=== PATIENT | male | born 1965 | race Caucasian/White ===

== ENCOUNTER 2017-01-12 12:06 | Emergency (ER) | payer SELFPAY ==
--- NOTE | 2017-01-12 12:12 | ER Document Report ---
ED General - General Stated Complaint: HEADACHE Time Seen by Provider: 01/12/17 12:09 Mode of Arrival: Medic Information source: Patient Notes: This is a 51-year-old man with a history of hypertension, active smoking who is brought in by EMS for reported left-sided numbness and tingling, followed by headache. The patient is accompanied by his . In the emergency room, the reports that he started having left-sided weakness acutely at 11 AM. 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 Patient states she had numbness at that time. When EMS arrived the numbness seemed to improve. Patient states that normally he is on amlodipine but he has not taken it for 4 days. He does smoke once pack of cigarettes a day. - HPI Onset: Just prior to arrival Onset/Duration: Sudden Quality of pain: No pain Severity: None Pain Level: Denies Associated symptoms: denies: Chills, Fever, Shortness of breath Exacerbated by: Denies Relieved by: Denies Similar symptoms previously: Yes Recently seen / treated by doctor: No - Related Data Allergies/Adverse Reactions: No Known Allergies Allergy (Verified 01/12/17 12:40) Home Medications: Current Home Medications Amlodipine Besylate [Amlodipine Besylate] 10 mg PO DAILY 01/12/17 [History] Aspirin [Aspirin 325 mg Tablet] 325 mg PO DAILY 01/12/17 [History] Losartan Potassium [Losartan Potassium] 1 tab PO DAILY 01/12/17 [History] Sildenafil Citrate [Viagra] 1 tab PO PRN PRN 01/12/17 [History] Tadalafil [Cialis] 1 tab PO PRN PRN 01/12/17 [History] Past Medical History - General Information source: Patient - Social History Smoking Status: Current Every Day Smoker Cigarette use (# per day): Yes - 1ppd Chew tobacco use (# tins/day): No Smoking Education Provided: No Frequency of alcohol use: None Drug Abuse: None Lives with: Family Family History: None Patient has suicidal ideation: No Patient has homicidal ideation: No Physical Exam - Vital signs Vitals: Pulse Resp BP Pulse Ox 78 16 152/110 H 98 01/12/17 12:15 01/12/17 12:15 01/12/17 12:15 01/12/17 12:15 Notes: Physical exam: GENERAL: 51-year-old man, alert and oriented 3, no acute distress. Not complaining of any significant headache at this time. The patient's blood pressure was 160/110. HEAD: Atraumatic, normocephalic. EYES: Pupils equal round and reactive to light, extraocular movements intact, sclera anicteric, conjunctiva are normal. ENT: TMs normal, nares patent, oropharynx clear without exudates. Moist mucous membranes. NECK: Normal range of motion, supple without lymphadenopathy or JVD. LUNGS: Breath sounds clear to auscultation bilaterally and equal. No wheezes rales or rhonchi. HEART: Regular rate and rhythm without murmurs, rubs or gallops. ABDOMEN: Soft, normoactive bowel sounds. No tenderness to palpation. No guarding, no rebound. No masses appreciated. EXTREMITIES: Normal range of motion, no pitting or edema. No clubbing or cyanosis. NEUROLOGICAL: Cranial nerves II through XII grossly intact. Normal speech, he does have left-sided upper and lower extremity weakness, reflexes appear to be symmetric. Cerebellar function seems to be impaired on the left due to motor function weakness. His sensory is intact, his NIH score is 4. PSYCH: Normal mood, normal affect. SKIN: Warm, Dry, normal turgor, no rashes or lesions noted. Course - Re-evaluation Re-evalutation: Note: The patient had initially reported that he felt that his symptoms were improving. Based upon this and a borderline blood pressure, the initial plan was to hold off on thrombolytics. However, 5 minutes after this determination, the patient stated that his weakness to the left arm into the left leg is getting more significant. On exam, his deficit of weakness does appear to be more dense on the left. His blood pressure came down on its own to 150/95. At that point, it was decided that lytics were to be given. I discussed the risks of TPA with him and his and they show that they understand the risks well. I have given the patient 5 mg of labetalol to prevent it from going up any higher. 01/12/17 13:34 01/12/17 13:41 Encounter timeline; 11 AM: Symptoms started 1215: Arrival to the ER. Blood pressure 155/110. CT shows no bleed. 12:30 NIH score Is 4. Patient reports symptoms seem to be improving. I have discussed the risk of TPA with the patient and the fact that the patient feels that his symptoms are improving, we are holding off on TPA. 12:50 on reassessment, patient reports that his symptoms are getting worse. Exam reveals that his deficit seems to be getting more pronounced. At that point, I made the decision to give TPA. - Vital Signs Vital signs: Temp Pulse Resp BP Pulse Ox 98.3 F 72 14 145/86 H 100 01/12/17 12:16 01/12/17 13:25 01/12/17 13:36 01/12/17 13:36 01/12/17 13:36 - Laboratory Result Diagrams: 01/12/17 12:26 01/12/17 12:26 Laboratory results interpreted by me: 01/12/17 01/12/17 12:26 12:26 Hgb 10.9 L Hct 33.5 L MCV 71 L MCH 23.0 L RDW 19.4 H Chloride 108 H Carbon Dioxide 21 L
--- NOTE | 2017-01-12 12:24 | RADIOLOGY REPORT (SQ) ---
EXAM DESCRIPTION: CT HEAD WITHOUT COMPLETED DATE/TIME: 01/12/2017 12:14 pm REASON FOR STUDY: right numbness COMPARISON: None. TECHNIQUE: Axial images acquired through the brain without intravenous contrast. Images reviewed wi th bone, brain and subdural windows. Images stored on PACS. All CT scanners at this facility use dose modulation, iterative reconstruction, and/or weight based d osing when appropriate to reduce radiation dose to as low as reasonably achievable (ALARA). [facility]: Dose Right [facility]: CareDose [facility]: Dose Right [facility]: Teradose 4D [facility]: [employer] RADIATION DOSE: mGy. LIMITATIONS: None. FINDINGS: VENTRICLES: Normal size and contour. CEREBRUM: No masses. No hemorrhage. No midline shift. Old lacunar infarcts in the internal capsule s bilaterally. No evidence for acute infarction. CEREBELLUM: No masses. No hemorrhage. No alteration of density. No evidence for acute infarction. EXTRAAXIAL SPACES: No fluid collections. No masses. ORBITS AND GLOBE: No intra- or extraconal masses. Normal contour of globe without masses. CALVARIUM: No fracture. PARANASAL SINUSES: No fluid or mucosal thickening. SOFT TISSUES: No mass or hematoma. OTHER: No other significant finding. IMPRESSION: Chronic ischemic changes. COMMENT: Pertinent positive or negative findings of the imaging study reported as a CRITICAL EXAM t ann MARI MD at12:18 on 01/12/2017. Category of Critical Exam: Stroke alert. TECHNICAL DOCUMENTATION: JOB ID: [id number] Quality ID # [id number]: Final reports with documentation of one or more dose reduction techniques (e.g., Au tomated exposure control, adjustment of the mA and/or kV according to patient size, use of iterative reconstruction technique) 2010 [employer]- All Rights Reserved
[2017-01-12] MEDS ORDERED: LABETALOL HCL INJ 20 MG/4 ML DISP.SYRIN IV ONE ×2 (12:36→13:06)
[2017-01-12 12:43] LABS: ABSOLUTE LYMPHOCYTES (AUTO) 1.7 10^3/uL (0.5-4.7); ABSOLUTE MONOCYTES (AUTO) 0.5 10^3/uL (0.1-1.4); ABSOLUTE NEUT (AUTO) 6.9 10^3/uL (1.7-8.2); BASOPHILS % (AUTO) 0.5 % (0-2); EOSINOPHILS % (AUTO) 0.5 % (0-6); HEMATOCRIT 33.5 % (37.9-51.0); HEMOGLOBIN 10.9 g/dL (13.5-17.0); HGB HCT DIFFERENCE -0.8; LYMPHOCYTES % (AUTO) 18.8 % (13-45); MEAN CORPUSCULAR HGB CONC 32.6 g/dL (32.0-36.0); MEAN CORPUSCULAR VOLUME 71 fl (80-97); MONOCYTES % (AUTO) 5.5 % (3-13); RED BLOOD COUNT 4.74 10^6/uL (4.35-5.55); RED CELL DISTRIBUTION WIDTH 19.4 % (11.5-14.0); SEGMENTED NEUTROPHILS % (AUTO) 74.7 % (42-78); WHITE BLOOD COUNT 9.3 10^3/uL (4.0-10.5)
[2017-01-12 12:45] LABS: PARTIAL THROMBOPLASTIN TIME 34.4 SEC (23.5-35.8)
[2017-01-12 12:47] LABS: PROTHROMBIN TIME 12.5 SEC (11.4-15.4)
[2017-01-12] MEDS ORDERED: ASPIRIN 81 MG TABLET, CHEWABLE PO ONE (12:47)
[2017-01-12] MEDS ORDERED: ALTEPLASE INJ 100 MG VIAL ONE (12:53)
[2017-01-12 13:04] LABS: ALANINE AMINOTRANSFERASE 30 U/L (21-72); ALBUMIN 3.9 g/dL (3.5-5.0); ALKALINE PHOSPHATASE 76 U/L (38-126); ANION GAP 10 (5-19); ASPARTATE AMINO TRANSFERASE 28 U/L (17-59); BILIRUBIN,DIRECT 0.3 mg/dL (0.0-0.4); BILIRUBIN,TOTAL 0.4 mg/dL (0.2-1.3); BLOOD UREA NITROGEN 7 mg/dL (7-20); CALCIUM 8.9 mg/dL (8.4-10.2); CARBON DIOXIDE 21 mmol/L (22-30); CHLORIDE 108 mmol/L (98-107); CREATINE KINASE 123 U/L (55-170); CREATININE RESULT 0.72 mg/dL (0.52-1.25); GLUCOSE 99 mg/dL (75-110); POTASSIUM 4.6 mmol/L (3.6-5.0); SODIUM 138.8 mmol/L (137-145); TOTAL PROTEIN 6.7 g/dL (6.3-8.2)
--- NOTE | 2017-01-12 13:05 | RADIOLOGY REPORT (SQ) ---
EXAM DESCRIPTION: CHEST SINGLE VIEW COMPLETED DATE/TIME: 01/12/2017 12:16 pm REASON FOR STUDY: bed 15 stroke alert COMPARISON: None. EXAM PARAMETERS: NUMBER OF VIEWS: One view. TECHNIQUE: Single frontal radiographic view of the chest acquired. RADIATION DOSE: NA LIMITATIONS: None. FINDINGS: LUNGS AND PLEURA: No opacities, masses or pneumothorax. No pleural effusion. MEDIASTINUM AND HILAR STRUCTURES: No masses. Contour normal. HEART AND VASCULAR STRUCTURES: Heart normal in size. Normal vasculature. BONES: No acute findings. HARDWARE: None in the chest. OTHER: No other significant finding. IMPRESSION: NO ACUTE RADIOGRAPHIC FINDING IN THE CHEST. TECHNICAL DOCUMENTATION: JOB ID: [id number]
[2017-01-12 13:15] LABS: CREATINE KINASE MB 1.74 ng/mL (<4.55)
[2017-01-12 13:16] LABS: TROPONIN I < 0.012 ng/mL
[2017-01-12] MEDS ORDERED: ACETAMINOPHEN 325 MG TABLET PO ONE ×2 (13:45→13:47)
[2017-01-12 14:19] VITALS: BP 142/85
--- NOTE | 2017-01-13 03:37 | EKG REPORT ---
SEVERITY:- ABNORMAL ECG - SINUS RHYTHM BORDERLINE INFERIOR Q WAVES NONSPECIFIC T ABNORMALITIES, INFERIOR LEADS : Confirmed by: Darling Kendall MD 13-Jan-2017 03:36:27
== END 2017-01-12 14:20 | disposition short-term general hospital (02) ==
LOC: ER 12:06
DX: I63.9 Cerebral infarction, unspecified (principal); G81.94 Hemiplegia, unspecified affecting left nondominant side; R20.0 Anesthesia of skin; R20.2 Paresthesia of skin; I10 Essential (primary) hypertension; T46.1X6A Underdosing of calcium-channel blockers, initial encounter; Z91.14 Patient's other noncompliance with medication regimen; F17.210 Nicotine dependence, cigarettes, uncomplicated
CPT/HCPCS: 93005; 36415; 82553; 82962; 82550; 85025; 85610; 85730; 80053; 84484; 71010; 70450; 93010; J3490; J2997

== ENCOUNTER 2017-01-21 18:43 | Inpatient (IN) | payer SELFPAY ==
--- NOTE | 2017-01-21 18:53 | ER Document Report ---
ED General - General Mode of Arrival: Ambulatory Information source: Patient - HPI Onset: Other - Refer to HPI notes <TONG MENDOZA - Last Filed: 01/21/17 22:58> <RAUL WILBURN - Last Filed: 01/27/17 12:18> - General Stated Complaint: POSSIBLE STROKE Time Seen by Provider: 01/21/17 18:50 Notes: Patient is a 51 year old male presenting to the ED with stroke like symptoms. Patient was seen in this facility on 01/12/17 for stroke and was given TPA and sent to [facility]. Patient states he was discharged and supposed to be scheduled for outpatient rehabilitation. Patient's spouse states that he started having left-sided weakness while he was sitting in his chair smoking a cigarette. Spouse states the patient kept falling asleep and nodding off when he was sitting in the chair. Patient is on Simvastatin, Pavix, ASA, and Amlodipine. Patient's spouse states he was taking Kratom but spouse states they were told to not take this medication and given Ultram to take instead and spouse states she "hid the medication" from the patient. Patient and spouse state the patient's baseline after his stroke was slight left facial droop, left arm and left leg were 75% strength, and he had some difficulties feeding himself. Patient today only complains of a headache (which he had during his last stroke) and the sudden weakness to his left side. Patient states he has a history of cluster headaches about 7 years ago. Spouse states that on 01/12 there was no bleed on his CT and when he was transferred a physical stroke did appear on the MRI at [facility]. PCP: Dr. Gottlieb ([place]) (TONG MENDOZA) - Related Data Allergies/Adverse Reactions: No Known Allergies Allergy (Verified 01/12/17 12:40) Home Medications: Current Home Medications Alprostadil [Caverject] 20 mcg IC PRN PRN 01/21/17 [History] Aspirin [Aspirin 81 mg Chewable Tablet] 81 mg PO DAILY 01/21/17 [History] Clopidogrel Bisulfate [Clopidogrel] 75 mg PO DAILY 01/21/17 [History] Nicotine [Nicotine Patch] 1 each TD DAILY 01/21/17 [History] Past Medical History - General Information source: Patient, Relative - spouse - Social History Smoking Status: Current Every Day Smoker Cigarette use (# per day): Yes Family History: None - Past Medical History Cardiac Medical History: Reports: Hx Hypercholesterolemia, Hx Hypertension <TONG MENDOZA - Last Filed: 01/21/17 22:58> Review of Systems - Review of Systems Constitutional: No symptoms reported EENT: No symptoms reported Cardiovascular: No symptoms reported Respiratory: No symptoms reported Gastrointestinal: No symptoms reported Genitourinary: No symptoms reported Male Genitourinary: No symptoms reported Musculoskeletal: No symptoms reported Skin: No symptoms reported Hematologic/Lymphatic: No symptoms reported Neurological/Psychological: See HPI, Weakness, Headaches -: Yes All other systems reviewed and negative <TONG MENDOZA - Last Filed: 01/21/17 22:58> Physical Exam - Vital signs Interpretation: Normal <TONG MENDOZA - Last Filed: 01/21/17 22:58> <COSMORAUL - Last Filed: 01/27/17 12:18> - Vital signs Vitals: Temp Pulse Resp BP Pulse Ox 97.8 F 76 16 123/84 98 01/21/17 18:53 01/21/17 18:53 01/21/17 18:53 01/21/17 18:53 01/21/17 18:53 - Notes Notes: GENERAL: Alert, interacts well. Drowsy. Mild distress. HEAD: Normocephalic, atraumatic. EYES: Appear normal. Pupils pinpoint, round, and reactive to light. ENT: Moist mucus membranes, tongue midline. NECK: Full range of motion. Supple. Trachea midline. LUNGS: Clear to auscultation bilaterally, no wheezes, rales, or rhonchi. No respiratory distress. HEART: Regular rate and rhythm. No murmurs, gallops, or rubs. ABDOMEN: Soft, non-tender. Non-distended. Normal bowel sounds. EXTREMITIES: Moves all 4 extremities spontaneously. FROM. Normal strength to the upper and lower extremities bilaterally. No edema. No hyperreflexia. NEUROLOGICAL: Alert and oriented x3. Normal speech. No focal neurological deficits. GSC 15. PSYCH: Normal affect, normal mood. SKIN: Warm, dry, normal turgor. No rashes or lesions noted. (TONG MENDOZA) Course - Laboratory Result Diagrams: 01/21/17 19:06 01/21/17 19:06 - Consults [facility] Time consulted: 20:02 Dr. Graff Time consulted: 20:24 <DELIOCODI DAVISINE - Last Filed: 01/21/17 22:58> - Laboratory Result Diagrams: 01/22/17 06:57 01/21/17 19:06 <RAUL WILBURN - Last Filed: 01/27/17 12:18> - Re-evaluation Re-evalutation: 01/21/17 18:59 Patient presents emergency department with his for concerns of strokelike symptoms. Patient was seen and evaluated on Friday and sent to [facility] after we gave him thrombolytics for CVA. reports that he went to [facility] and she says has made a 75% recovery. She states that his MRI up in [place] was positive. He is an aggressive smoker and and was smoking in the garage this afternoon when she said he became very sleepy his head started to droop he dropped a cigarette and she said he had left arm and left leg weakness similar to his previous episodes. 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 He has equal bilateral lower extremity strength no hyperreflexia. And speech is normal. She reports that he was also off balance and complaining of a headache which she had a headache the previous time as well. And patient has a history of cluster headaches by history. Patient is on Plavix and aspirin he was taking KRATUM for chronic pain but was told to stop that by [facility] 01/21/17 21:04 CT of the head shows changes consistent with evolution following a stroke. I spoke with Dr. SHERYL MOCTEZUMA neurology advisement. He had the record in front of him and stated that he did have a verifiable stroke and was sent home on aspirin Plavix nicotine tramadol and Norvasc. He also mentioned the substance kratom that he had been using and stated that they put him on tramadol for some of withdrawal type symptoms. Patient and reassessed at the bedside passed out on one another had to be aroused at the bedside continuing to deny any substance abuse. neurology at [facility] stated that he does not feel the patient needs transferred currently nor does he feel the patient needs thrombolytics he does however think the patient should be placed under observation and reassessment neurologically and have a repeat CT scan in 24 hours. I spoke with the hospitalist who agreed to admit the patient to the hospital nurse care. (RAUL WILBURN) - Vital Signs Vital signs: Temp Pulse Resp BP Pulse Ox 97.6 F 58 L 16 123/84 98 01/23/17 10:31 01/23/17 10:31 01/23/17 10:31 01/23/17 10:31 01/23/17 10:31 - Laboratory Laboratory results interpreted by me: 01/21/17 01/21/17 01/21/17 19:06 19:06 19:06 WBC 11.6 H Hgb 10.6 L Hct 33.3 L MCV 71 L MCH 22.5 L MCHC 31.9 L RDW 18.8 H Absolute Neutrophils 9.0 H Glucose 137 H ALT 17 L - Consults [facility] Reason for consultation: 01/21/17 20:02 Contacted [facility] to consult about the patient; they will call back. 01/21/17 20:21 Call from [facility], discussed patient with Dr. Lemons who recommends the patient does not need to be transferred. (TONG MENDOZA) Dr. Graff Reason for consultation: 01/21/17 20:[address] Graff for possible admission. Patient will be admitted. (TONG MENDOZA) Critical Care Note - Critical Care Note Total time excluding time spent on procedures (mins): 55 <RAUL WILBURN - Last Filed: 01/27/17 12:18> Discharge <TONG MENDOZA - Last Filed: 01/21/17 22:58> - Discharge Admitting Provider: Hospitalist Unit Admitted: ICU <RAUL WILBURN - Last Filed: 01/27/17 12:18> - Discharge Clinical Impression: acute altered mental status, Recent CVA with thrombolytics Condition: Stable Disposition: ADMITTED INPATIENT Scribe Attestation: 01/21/17 21:06 I personally performed the services described in the documentation reviewed the documentation recorded by my scribe in my presence and it accurately and completely records my words and actions (RAUL WILBURN) Scribe Documentation - Scribe Written by Scribangelique:: Gregg Mendez 01/21/17 20:30 acting as scribe for :: Cosmo <TONG MENDOZA - Last Filed: 01/21/17 22:58> ED NIH Stroke Scale - NIH Stroke Scale *: 1. NIH scale should be completed with appropriate accompanying assessment tools. *: 2. The NIH should reflect what the patient is capable of doing and should not be coached by the clinician. 1a. Level of Consciousness: 0=Alert;keenly responsive -: 1=Drowsy -: 2=Obtunded -: 3=Coma/unresponsive or reflex to noxious stimuli. 1a. Responses: 0 1b. Orientation Questions: a. What month is it? -: b. How old are you? -: 0=Answers both questions correctly. -: 1=Answers one question correctly or patient is intubated or has orotracheal trauma. -: 2=Answers neither question correctly. 1b. Responses: 0 1c. Response to commands: a. Open and close eyes? -: b. Commercial Drafter and release hand? -: Credit is given despite weakness. Demonstration of task is permitted. Substitute command if hands cannot be used. -: 0=Performs both tasks correctly -: 1=Performs one task correctly -: 2=Performs neither task correctly 1c. Responses: 0 2. Gaze: Establish eye contact and instruct patient to "Follow my finger" -: 0=Normal -: 1=Partial gaze palsy. Gaze is abnormal in one or both eyes, but where forced deviation or total gaze paresis is not present. -: 2=Forced deviation or total gaze paresis. 2. Responses: 0 3. Visual Ashraf: Sees fingers in all four quadrants. -: 0=No visual loss. -: 1=Partial hemianopsia. -: 2=Complete hemianopsia. -: 3=Bilateral hemianopsia (including Cortical blindness) 3. Responses: 0 4. Facial Movement: Instruct patient to: -: a. Show me your teeth -: b. Raise your eyebrows -: c. Close your eyes -: d. Smile -: 0=Normal symmetrical movement -: 1=Minor paralysis (flattened nasolabial fold, asymmetry on smiling). -: 2=Partial paralysis (total or near total paralysis of lower face). -: 3=Complete paralysis of upper and lower face 4. Responses: 1 5. Motor functions (left arm): Alternate sides and extend each arm with palms down (90 degrees if sitting or 45 degrees for supine). -: 0=No drift;limb holds for full 10 seconds. -: 1=Drift; limb holds but drifts down before full 10 seconds, but does not hit bed. -: 2=Some effort against gravity; limb cannot get to or maintain position. -: 3=No effort against gravity; limb falls. -: 4=No movement. -: UN=Amputation, joint fusion, explain in comments. 5. Responses (left arm): 0 5. Motor Functions (right arm): Alternate sides and extend each arm with palms down (90 degrees if sitting or 45 degrees for supine). -: 0=No drift;limb holds for full 10 seconds. -: 1=Drift; limb holds but drifts down before full 10 seconds, but does not hit bed. -: 2=Some effort against gravity; limb cannot get to or maintain position. -: 3=No effort against gravity; limb falls. -: 4=No movement. -: UN=Amputation, joint fusion, explain in comments. 5. Responses (right arm): 0 6. Motor Functions (left leg): With patient lying supine, alternate sides and extend each leg (30 degrees always while supine). -: 0=No drift, leg holds position for full 5 seconds -: 1=Drift; leg falls before full 5 seconds but does not hit bed. -: 2=Some effort against gravity, leg falls to bed but some effort against gravity. -: 3=No effort against gravity, leg falls to bed immediately. -: 4=No movement. -: UN=Amputation, joint fusion; explain in comments. 6. Responses (left leg): 0 6. Motor Functions (right leg): With patient lying supine, alternate sides and extend each leg (30 degrees always while supine). -: 0=No drift, leg holds position for full 5 seconds -: 1=Drift; leg falls before full 5 seconds but does not hit bed. -: 2=Some effort against gravity, leg falls to bed but some effort against gravity. -: 3=No effort against gravity, leg falls to bed immediately. -: 4=No movement. -: UN=Amputation, joint fusion; explain in comments. 6. Responses (right leg): 0 7. Limb Ataxia: With eyes open instruct patient to: -: a. "Touch your finger to your nose". -: b. "Touch your heel to your qu[place]" -: 0=Absent -: 1=Present in one limb. -: 2=Present in two limbs. -: UN=Amputation or joint fusion; explain in comments. 7. Responses: 0 8. Sensory: Test sensation using pinprick or noxious stimuli. Test as many body parts as possible. -: 0=Normal;no sensory loss -: 1=Mile to moderate sensory loss (patient feels pin prick but is less sharp on affected side). -: 2=Severe or total sensory loss. 8. Responses: 0 9. Best Language: Instruct patient to: -: a. "Describe what you see in this picture." -: b. "Name the items in this picture." -: c. "Read these sentences." -: 0=No aphasia, normal -: 1=Mild to moderate aphasia. -: 2=Severe aphasia -: 3=Mute, global aphasia, no usable speech or auditory comprehension. 9. Responses: 1 10. Articulation, Dysarthia: Instruct patient to: -: "Read these words" or "Repeat these words" -: 0=Normal -: 1=Mild to moderate; patient may slur some words but can be understood without difficulty. -: 2=Severe; patients speech so slurred as to be unintelligible in the absence of dysphasia. -: UN=Intubated or other physical barrier, explain in comments. 10. Responses: 1 11. Extinction or inattention: 0=No abnormality -: 1= Visual, tactile, auditory, spatial, or personal inattention or extinction to bilateral simulation in one or the sensory modalities. -: 2=Profound gusatbo-inattention or gustabo-inattention to more than one modality; does not recognize own hand. 11. Responses: 0 Total Score: 3 <TONG MENDOZA - Last Filed: 01/21/17 22:58>
--- NOTE | 2017-01-21 19:06 | RADIOLOGY REPORT (SQ) ---
EXAM DESCRIPTION: CT HEAD WITHOUT COMPLETED DATE/TIME: 01/21/2017 6:56 pm REASON FOR STUDY: BED T1 PER DR WILBURN R/O STROKE COMPARISON: 01/12/2017 TECHNIQUE: Axial images acquired through the brain without intravenous contrast. Images reviewed wi th bone, brain and subdural windows. Images stored on PACS. All CT scanners at this facility use dose modulation, iterative reconstruction, and/or weight based d osing when appropriate to reduce radiation dose to as low as reasonably achievable (ALARA). [facility]: Dose Right [facility]: CareDose [facility]: Dose Right [facility]: Teradose 4D [facility]: [employer] RADIATION DOSE: mGy. LIMITATIONS: None. FINDINGS: VENTRICLES: Normal size and contour. CEREBRUM: There are focal areas of decreased attenuation in the deep white frontal lobe and left allie ventricular white matter. There is decreased attenuation adjacent to the posterior horn of the right lateral ventricle. These are consistent with old infarcts. There is no hemorrhage, focal mass or m idline shift. CEREBELLUM: No masses. No hemorrhage. No alteration of density. No evidence for acute infarction. EXTRAAXIAL SPACES: No fluid collections. No masses. ORBITS AND GLOBE: No intra- or extraconal masses. Normal contour of globe without masses. CALVARIUM: No fracture. PARANASAL SINUSES: No fluid or mucosal thickening. SOFT TISSUES: No mass or hematoma. OTHER: No other significant finding. IMPRESSION: Multiple areas of decreased attenuation which have progressed when compared to January 12 . Recommend MRI for further evaluation. TECHNICAL DOCUMENTATION: JOB ID: [id number] Quality ID # [id number]: Final reports with documentation of one or more dose reduction techniques (e.g., Au tomated exposure control, adjustment of the mA and/or kV according to patient size, use of iterative reconstruction technique) 2010 [employer]- All Rights Reserved
--- NOTE | 2017-01-21 19:09 | RADIOLOGY REPORT (SQ) ---
EXAM DESCRIPTION: CHEST SINGLE VIEW COMPLETED DATE/TIME: 01/21/2017 7:02 pm REASON FOR STUDY: ams COMPARISON: 01/12/2017 EXAM PARAMETERS: NUMBER OF VIEWS: One view. TECHNIQUE: Single frontal radiographic view of the chest acquired. RADIATION DOSE: NA LIMITATIONS: None. FINDINGS: LUNGS AND PLEURA: Lung moreno are hyperexpanded but clear. No effusions. MEDIASTINUM AND HILAR STRUCTURES: No masses. Contour normal. HEART AND VASCULAR STRUCTURES: Heart normal in size. Normal vasculature. BONES: No acute findings. HARDWARE: None in the chest. OTHER: No other significant finding. IMPRESSION: Hyperexpansion. No acute findings. TECHNICAL DOCUMENTATION: JOB ID: [id number]
[2017-01-21 19:25] LABS: ABSOLUTE BASOPHILS # (AUTO) 0.1 10^3/uL (0.0-0.2); ABSOLUTE EOSINOPHILS # (AUTO) 0.1 10^3/uL (0.0-0.6); ABSOLUTE LYMPHOCYTES (AUTO) 1.7 10^3/uL (0.5-4.7); ABSOLUTE MONOCYTES (AUTO) 0.8 10^3/uL (0.1-1.4); BASOPHILS % (AUTO) 0.7 % (0-2); EOSINOPHILS % (AUTO) 0.6 % (0-6); HEMATOCRIT 33.3 % (37.9-51.0); HEMOGLOBIN 10.6 g/dL (13.5-17.0); HGB HCT DIFFERENCE -1.5; LYMPHOCYTES % (AUTO) 14.8 % (13-45); MEAN CORPUSCULAR HEMOGLOBIN 22.5 pg (27.0-33.4); MEAN CORPUSCULAR HGB CONC 31.9 g/dL (32.0-36.0); MEAN CORPUSCULAR VOLUME 71 fl (80-97); MONOCYTES % (AUTO) 6.6 % (3-13); RED BLOOD COUNT 4.72 10^6/uL (4.35-5.55); RED CELL DISTRIBUTION WIDTH 18.8 % (11.5-14.0); SEGMENTED NEUTROPHILS % (AUTO) 77.3 % (42-78); WHITE BLOOD COUNT 11.6 10^3/uL (4.0-10.5)
[2017-01-21 19:39] LABS: ANION GAP 11 (5-19); BLOOD UREA NITROGEN 10 mg/dL (7-20); CALCIUM 9.2 mg/dL (8.4-10.2); CARBON DIOXIDE 23 mmol/L (22-30); CHLORIDE 107 mmol/L (98-107); CREATININE RESULT 0.85 mg/dL (0.52-1.25); GLUCOSE 137 mg/dL (75-110); POTASSIUM 4.3 mmol/L (3.6-5.0); SODIUM 140.7 mmol/L (137-145)
[2017-01-21 19:51] LABS: CREATINE KINASE MB 0.58 ng/mL (<4.55)
[2017-01-21 19:52] LABS: TROPONIN I < 0.012 ng/mL
[2017-01-21 22:04] LABS: ADD ON TESTING BLD IN LAB ACKNOWLEDGE
[2017-01-21 22:14] LABS: PROTHROMBIN TIME 12.4 SEC (11.4-15.4)
[2017-01-21 22:15] LABS: PARTIAL THROMBOPLASTIN TIME 31.3 SEC (23.5-35.8)
[2017-01-21 22:20] LABS: MAGNESIUM 1.6 mg/dL (1.6-2.3)
[2017-01-21 22:55] LABS: AMORPHOUS SEDIMENT,URINE TRACE /HPF; APPEARANCE,URINE SLIGHTLY-CLOUDY; BILIRUBIN,URINE NEGATIVE (NEGATIVE); GLUCOSE, URINE NEGATIVE (NEGATIVE); KETONES,URINE NEGATIVE (NEGATIVE); LEUKOCYTE ESTERASE,URINE NEGATIVE (NEGATIVE); NITRITE,URINE NEGATIVE (NEGATIVE); PROTEIN,URINE NEGATIVE (NEGATIVE); URINE SPECIFIC GRAVITY 1.009; UROBILINOGEN,URINE NEGATIVE mg/dL (<2.0)
[2017-01-21 23:07] LABS: URINE BARBITURATES SCREEN NEGATIVE; URINE METHADONE SCREEN NEGATIVE; URINE OPIATES LOW NEGATIVE; URINE PHENCYCLIDINE SCREEN NEGATIVE
[2017-01-21] MEDS ORDERED: NORMAL SALINE 1000 ML 1,000 ML IV PRN (23:07)
[2017-01-21] MEDS ORDERED: ACETAMINOPHEN 325 MG TABLET PO PRN (23:07)
[2017-01-21] MEDS ORDERED: PROMETHAZINE HCL 25 MG TABLET PO PRN (23:16)
[2017-01-21 23:31] LABS: ALANINE AMINOTRANSFERASE 17 U/L (21-72); ALKALINE PHOSPHATASE 67 U/L (38-126); ASPARTATE AMINO TRANSFERASE 20 U/L (17-59); BILIRUBIN,DIRECT 0.3 mg/dL (0.0-0.4); BILIRUBIN,TOTAL 0.4 mg/dL (0.2-1.3); TOTAL PROTEIN 6.7 g/dL (6.3-8.2)
--- NOTE | 2017-01-21 23:47 | PDOC H&P ---
History of Present Illness Admission Date/PCP: 01/21/17 21:23 MICHELLE CASTANON MD Patient complains of: ALTERED MENTAL STATUS History of Present Illness: SHARITA POWELL is a 51 year old male, pack-a-day smoker, status post distant prior stroke without residual aftereffects, status post prior TIA, and status post stroke Friday 9 days ago, transferred from our facility to [facility] after TPA was given here. Discharged this past Friday. Mild residual left hemiparesis. Was standing in his garage smoking a cigarette, when he became very sleepy, dropped the cigarette and said that his left arm and leg weakness had worsened. Was also noted by his girlfriend, who is present at his side, with his approval, to have slight facial droop on the left. Was brought to the emergency room for further evaluation. CT scan results noted. Prior to my being called, the evaluating emergency room physician did speak with the neurologist at [facility], who reviewed this gentlemen's records from there and confirmed that he had indeed had a stroke. It turns out that the patient has been eating Kratum, a plant substance known to the emergency room physician and the neurologist for chronic pain control. Reportedly this medication can make someone quite altered. ER physician observed both patient and his girlfriend to be basically passed out on his emergency room stretcher in the emergency room. However, he did awaken easily and was noted not to have any obvious neurologic deficit other than slight ptosis of his left lid, which girlfriend states is new starting earlier today. Subtle mild headache, which is not unusual for him. Denies chest or abdominal pain, nausea vomiting, fever or chills, diarrhea or dysuria. According to emergency room physician, neurologist at [facility] did not feel transfer there was warranted; simply observation and supportive care with repeat CT scan in 24 hours. Patient has been discussed with emergency room physician who evaluated the patient. Extensive notes by emergency room physician reviewed. Dictation via voice recognition software. Laboratory results are listed in [employer] [facility] and are reviewed. X-ray summary results are listed below, with full report(s) reviewed. . EKG reviewed and compared to prior tracing from the of last month. Social history/personal habits: . Has children. 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 Pack of cigarettes per day. No alcohol use. Substance abuse as noted above. Allergies/adverse reactions are listed in [employer] and are reviewed. Home medications initially autopopulated into [employer] may not accurately reflect patient's true medications, dosages, and/or frequencies. fill technician to reconcile medications. Unfortunately, patient not certain of all medications/dosages/frequencies. REVIEW OF SYSTEMS: Constitutional: No fever or chills. Eyes: Wears glasses. ENT: No swallowing problems or complaints. Partial hearing loss. Pulmonary: No current complaints. Cardiovascular: No current complaints, including chest pain. Gastrointestinal: No current complaints, including nausea or vomiting. Skin: No current complaints, including rashes. Hematologic: Denies easy bruising. Neurologic: See history and present illness. Musculoskeletal: Joint pain from arthritis. Psychiatric: Anxiety. Endocrine: No current complaints, including polyuria. Genitourinary: No current complaints, including dysuria. PHYSICAL EXAMINATION: 72 kg. Height is not recorded on the chart. Blood pressure 114/95. Pulse 79 and regular. 98% saturation on room air. Respirations are 16 and unlabored. Temperature 97.8. He is a thin otherwise well-nourished well-developed though somewhat chronically ill-appearing male who appears a bit older than his stated age. When I initially walked in his emergency room cubicle, he was standing at the bedside, attempting to urinate. Sat down on his emergency room stretcher and then to a supine position without undue difficulty. Girlfriend is present at his side; patient approves. Girlfriend herself appears slightly somnolent at times, and overall under the effect of some substance. Patient intermittently briefly becomes quite sleepy but then awakens quickly when his name is called. Skin is warm and dry. No grossly obvious evidence of rash in areas of skin examined. No subcutaneous nodules palpated. ENT: Hearing grossly normal to normal conversation. Tongue midline on protrusion pink and slightly tacky. Eyes: No scleral icterus. Pupils equal and reactive to light at 4 mm. [place] conjunctivae. Slight ptosis of left eyelid. Neck is supple and nontender to gentle active range of motion and palpation. Midline trachea. No palpable thyroid nodule mass enlargement or tenderness. Lymphatic: No palpable cervical or clavicular nodes. Neck and lymphatic exams limited by patient body habitus. Psychiatric: Reasonable insight into acute and chronic medical issues. Oriented to time location and why here. Lungs: Auscultation reveals clear and equal breath sounds bilaterally. No use of accessory respiratory muscles. Cardiovascular: Heart regular rate and rhythm, without gallop murmur or rub. No carotid or abdominal aortic bruits. No ankle or pedal edema. Faintly palpable dorsalis pedis pulses. Abdomen:soft slightly distended nontender with positive bowel sounds. Unable to adequately evaluate abdomen for masses or organomegaly due to distention. Extremities: Hands and feet are warm and dry. No calf tenderness to compression. No grossly obvious visual evidence of calf swelling. Gentle manipulation of upper and lower extremities fails to reveal any obvious evidence of injury or instability to involved major joints. Neurologic: Cranial Nerves II through XII are grossly intact with the exception again of slight ptosis of the left eyelid. Light touch intact at face , upper and lower extremities. Motor function of major muscle groups upper and lower extremities 5 over 5 and symmetric. Patellar reflexes absent. Absent Babinski. No nystagmus. Past Medical History Cardiac Medical History: Reports: Hypertension Denies: Atrial Fibrillation, Congestive Heart Failure, Coronary Artery Disease, DVT, Myocardial Infarction, Hyperlipidema, Pulmonary Embolism Pulmonary Medical History: Denies: Asthma, Chronic Obstructive Pulmonary Disease (COPD), Sleep Apnea EENT Medical History: Reports: Eyes - Glasses, Ears - Partial hearing loss Denies: Throat Neurological Medical History: Reports: Ischemic CVA Denies: Hemorrhagic CVA, Seizures Endocrine Medical History: Denies: Diabetes Mellitus Type 1, Diabetes Mellitus Type 2, Hyperthyroidism, Hypothyroidism Renal/ Medical History: Reports: None GI Medical History: Reports: Other - History of a "small intestinal" ulcer Denies: Cirrhosis, Gastroesophageal Reflux Disease, Hepatitis, Hiatal Hernia Musculoskeltal Medical History: Reports: Arthritis Skin Medical History: Reports: None Psychiatric Medical History: Reports: General Anxiety Disorder, Substance Abuse , Tobacco Dependency Denies: Alcohol Dependency, Depression Infectious Medical History: Denies: Hepatitis B, Hepatitis C Past Surgical History Past Surgical History: Reports: Carotid Endarterectomy - Right, Orthopedic Surgery - Knee surgery Social History Information Source: Patient, Friend - Girlfriend, Emergency Med Personnel, [facility] Records Smoking Status: Current Every Day Smoker Frequency of Alcohol Use: None Drugs: Other - Kratum - Advance Directive Resuscitation Status: Full Code Surrogate healthcare decision maker:: Girlfriend Daiana Herrera Family History Family History: None Parental Family History Reviewed: Yes - Mother of alcohol complications. Father is alive with COPD. Children Family History Reviewed: Yes - Healthy Sibling(s) Family History Reviewed.: Yes - Sister with multiple sclerosis Medication/Allergy Home Medications: Amlodipine Besylate 10 mg PO DAILY 01/12/17 Alprostadil [Caverject] 20 mcg IC PRN PRN 01/21/17 Aspirin [Aspirin 81 mg Chewable Tablet] 81 mg PO DAILY 01/21/17 Clopidogrel Bisulfate [Clopidogrel] 75 mg PO DAILY 01/21/17 Nicotine [Nicotine Patch] 1 each TD DAILY 01/21/17 Atorvastatin Calcium [Lipitor 40 mg Tablet] 40 mg PO QHS #30 tablet 01/23/17 Tramadol HCl [Ultram 50 mg Tablet] 1 tab PO Q6HP PRN #12 tablet 01/23/17 Allergies/Adverse Reactions: No Known Allergies Allergy (Verified 01/12/17 12:40) Physical Exam Vital Signs: Temp Pulse Resp BP Pulse Ox 97.8 F 60 10 L 131/78 H 94 01/21/17 18:53 01/21/17 22:38 01/21/17 23:01 01/21/17 23:01 01/21/17 23:01 Results Laboratory Results: 01/21/17 22:38 Urine Color YELLOW Urine Appearance SLIGHTLY-CLOUDY Urine pH 5.0 Ur Specific [place] 1.009 Urine Protein NEGATIVE Urine Glucose (UA) NEGATIVE Urine Ketones NEGATIVE Urine Blood NEGATIVE Urine Nitrite NEGATIVE Ur Leukocyte Esterase NEGATIVE Urine WBC (Auto) 2 Urine RBC (Auto) 5 01/21/17 21:52 Troponin I Cancelled Impressions: Head CT 01/21/17 00:00 IMPRESSION: Multiple areas of decreased attenuation which have progressed when compared to January 12. Recommend MRI for further evaluation. Chest X-Ray 01/21/17 18:56 IMPRESSION: Hyperexpansion. No acute findings. Assessment & Plan - Diagnosis (1) Acute encephalopathy Is this a current diagnosis for this admission?: YesPlan: Supportive care at this time. Encephalopathy should clear with time and treatment. (2) Acute focal neurological deficit Is this a current diagnosis for this admission?: YesPlan: Patient will be placed in observation bed admitted under CVA/TIA protocol. Discussed with daytime hospitalist team further imaging procedures, with recommendation by [facility] neurology for repeat CT scan of brain in approximately 24 hours. Will request old records from [facility]. Permissive hypertension. I have strongly urged patient not to get out of bed without calling nursing staff, to avoid a fall with injury. Knee high SCDs for DVT prophylaxis, along with subcutaneous Lovenox. Impression and plans were discussed with patient and girlfriend, both of whom concur Time spent in evaluation and management of patient: 74 minutes (3) Anemia Qualifiers: Anemia type: unspecified type Qualified Code(s): D64.9 - Anemia, unspecified Is this a current diagnosis for this admission?: YesPlan: Follow-up CBC with differential. No need for transfusion at present time. No old labs available for comparison. (4) Left hemiparesis Is this a current diagnosis for this admission?: Yes (5) Substance abuse Is this a current diagnosis for this admission?: YesPlan: At 11:20 PM on the , I spoke with call center at [place] poison control. Awaiting call back from the on-call pattern chain maker supervisor to discuss further the substance kratum. At 11:45 PM on the , patient was discussed by phone with on-call pattern chain maker supervisor, Dr. Hair. She stated the above-noted substance was a plant alkaloid, and at small doses could serve as a stimulant, but in larger doses could act like an opiate. Stated the substance sometimes resulted in elevated liver functions, along with QT prolongation. Occasional seizure with heavy ingestion. Also possible opiate withdrawal symptoms with heavy ingestion. She stated that peak effect was usually 2-3 hours after ingestion, and after 5- 7 hours, the effects should be wearing off nicely. She basically recommended supportive care. She felt if the initial labs were unremarkable, there would be no need to repeat these. (6) hist tpa Is this a current diagnosis for this admission?: Yes (7) Tobacco dependency Is this a current diagnosis for this admission?: Yes (8) History of TIA (transient ischemic attack) Is this a current diagnosis for this admission?: Yes (9) DNR (do not resuscitate) Is this a current diagnosis for this admission?: YesPlan: Early the morning of the , was notified by patient's ICU nurse that patient desired DNR/DNI status. I went to his bedside at 2:50 AM. Patient was asleep, but awoke easily. Alert cooperative. Oriented to time location and why in the hospital. ICU nurse at bedside. Implications of DO NOT RESUSCITATE/DO NOT INTUBATE status discussed with patient. Discussed in layperson's terms. Implications understood. Patient is the health care decision maker. Patient conversation is lucid and appropriate. Patient desires DO NOT RESUSCITATE/DO NOT INTUBATE status. Will honor patient wishes.
[2017-01-22 07:08] LABS: ABSOLUTE BASOPHILS # (AUTO) 0.1 10^3/uL (0.0-0.2); ABSOLUTE EOSINOPHILS # (AUTO) 0.2 10^3/uL (0.0-0.6); ABSOLUTE LYMPHOCYTES (AUTO) 3.2 10^3/uL (0.5-4.7); ABSOLUTE MONOCYTES (AUTO) 0.7 10^3/uL (0.1-1.4); ABSOLUTE NEUT (AUTO) 3.8 10^3/uL (1.7-8.2); EOSINOPHILS % (AUTO) 2.3 % (0-6); HEMATOCRIT 30.3 % (37.9-51.0); HEMOGLOBIN 9.9 g/dL (13.5-17.0); HGB HCT DIFFERENCE -0.6; LYMPHOCYTES % (AUTO) 40.5 % (13-45); MEAN CORPUSCULAR HEMOGLOBIN 22.9 pg (27.0-33.4); MEAN CORPUSCULAR HGB CONC 32.9 g/dL (32.0-36.0); MEAN CORPUSCULAR VOLUME 70 fl (80-97); MONOCYTES % (AUTO) 8.8 % (3-13); RED BLOOD COUNT 4.34 10^6/uL (4.35-5.55); RED CELL DISTRIBUTION WIDTH 18.8 % (11.5-14.0); SEGMENTED NEUTROPHILS % (AUTO) 47.4 % (42-78)
[2017-01-22] MEDS: ENOXAPARIN SODIUM INJ 40 MG/0.4 ML DISP.SYRIN SUBCUT SCH (09:13)
[2017-01-22] MEDS: DOCUSATE SODIUM 100 MG CAPSULE PO SCH ×2 (09:13→17:05)
[2017-01-22] MEDS ORDERED: ASPIRIN 325 MG TABLET, ENT COATED PO SCH (10:00)
--- NOTE | 2017-01-22 10:50 | EKG REPORT ---
SEVERITY:- ABNORMAL ECG - SINUS RHYTHM BORDERLINE INFERIOR Q WAVES NONSPECIFIC T ABNORMALITIES, INFERIOR LEADS : Confirmed by: Ashley Perkins 22-Jan-2017 10:50:13
--- NOTE | 2017-01-22 10:50 | EKG REPORT ---
SEVERITY:- ABNORMAL ECG - SINUS RHYTHM PROBABLE INFERIOR INFARCT, AGE INDETERMINATE : Confirmed by: Ashley Perkins 22-Jan-2017 10:50:19
[2017-01-22] MEDS ORDERED: NICOTINE 7 MG/24 HR PATCH.TD24 TD PRN (10:58)
[2017-01-22] MEDS ORDERED: ALPROSTADIL 20 MCG IC PRN (10:58)
[2017-01-22] MEDS ORDERED: TRAMADOL HCL 50 MG TABLET PO PRN (10:58)
[2017-01-22] MEDS: TRAMADOL HCL 50 MG TABLET PO PRN ×3 (11:51→23:50)
--- NOTE | 2017-01-22 13:42 | PROGRESS NOTE E ---
Progress Note NAME: SHARITA POWELL : 1965 AGE: 51Y DATE: 01/22/2017 ROOM: 318 SUBJECTIVE: The patient is currently lying in bed. He states he feels much better than when he came in. He has almost had complete symptom resolution. The patient does admit to a full body pain that he attributes to arthritis. The patient states that he had been discharged on just a few Ultram from [facility] and would like to have this continued. Currently awaiting medical records from [facility]. The patient has been afebrile, his blood pressure has been in a good range, and the patient does not voice any other concerns at this time. REVIEW OF SYSTEMS: The rest of the review of systems is negative. MEDICATIONS: Medications have been reviewed. OBJECTIVE: GENERAL: The patient is a 51-year-old male who is awake, alert, and oriented to person, place, time, and situation. He is verbal, conversational, ambulatory, does not appear to be in any acute distress. VITAL SIGNS: As follows: Temperature is 97.9, pulse 70, respirations 19, blood pressure is 122/77, oxygen saturation is 97% on room air. SKIN: Warm and dry. No rash, not diaphoretic. HEENT: Pupils equal, round, and reactive to light and accommodation. Conjunctivae pink. There is no JVP. CARDIOVASCULAR: Heart is regular. There is no murmur or rub. CHEST: Clear, symmetrical, unlabored. ABDOMEN: Soft, nontender, nondistended. BACK: No CVA tenderness or sacral edema. EXTREMITIES: No clubbing, cyanosis, edema. PSYCHIATRIC: Appropriate affect. Pleasant mood. DIAGNOSTICS: Lab values are as follows. Hematology obtained on 01/22/2017: WBCs are 8.0, hemoglobin is 9.9, hematocrit is 38.3, platelet count is 239,000. Chemistry obtained on 01/21/2017: Bilirubin is 0.4, AST 20, ALT 17, alk phos 67, total protein 6.7, albumin 4. Troponin is 0.012. IMPRESSION AND PLAN: 1. CEREBROVASCULAR DISEASE. The patient has had complete resolution of previous weakness. The patient is about a week out from a previous CVA in which he was t-PA'd at [facility], currently awaiting medical records for this. In the meantime, will continue the patient's home medications and follow. The patient is to have a repeat CT at the 24-hour silvano as per recommendations of Neurology. This has been ordered and timed. 2. LEFT HEMIPARESIS; THIS IS CHRONIC. 3. KRATOM USE. The case was discussed with Toxicology. According to the patient he has not had this since discharge from [facility], that he had been taking Ultram for his pain instead. Will encourage this. 4. TOBACCO DEPENDENCY. Spent 3 minutes discussing smoking cessation education. The patient declines any pharmacological intervention at this time. DISPOSITION: THE PATIENT IS A DO NOT RESUSCITATE/DO NOT INTUBATE. Pending the patient's symptomatology and diagnostic findings, will re-evaluate in the a.m. Time spent on this followup, including assessment/plan, physical examination, patient education, and review of previous records, is 35 minutes. DICTATING PHYSICIAN: NHAN ABDUL NP [id number] PHY#: [id number] ID: [id number] JOB#: [id number] ACCT: [id number] cc: >
--- NOTE | 2017-01-22 19:41 | RADIOLOGY REPORT (SQ) ---
EXAM DESCRIPTION: CT HEAD WITHOUT COMPLETED DATE/TIME: 01/22/2017 7:04 pm REASON FOR STUDY: 24hr follow-up per Neurology COMPARISON: 01/21/2017 TECHNIQUE: Axial images acquired through the brain without intravenous contrast. Images reviewed wi th bone, brain and subdural windows. Images stored on PACS. All CT scanners at this facility use dose modulation, iterative reconstruction, and/or weight based d osing when appropriate to reduce radiation dose to as low as reasonably achievable (ALARA). [facility]: Dose Right [facility]: CareDose [facility]: Dose Right [facility]: Teradose 4D [facility]: Smart Immunovaccine RADIATION DOSE: Up-to-date CT equipment and radiation dose reduction techniques were employed. CTDIv ol: 64.6 mGy. DLP: 1163 mGy-cm. mGy. LIMITATIONS: None. FINDINGS: VENTRICLES: Normal size and contour. CEREBRUM: The focal areas of decreased attenuation in the left periventricular white matter, right pe riventricular white matter an adjacent to the posterior horn of the right lateral ventricle are stabl e in appearance. No hemorrhage. No focal mass or midline shift. CEREBELLUM: No masses. No hemorrhage. No alteration of density. No evidence for acute infarction. EXTRAAXIAL SPACES: No fluid collections. No masses. ORBITS AND GLOBE: No intra- or extraconal masses. Normal contour of globe without masses. CALVARIUM: No fracture. PARANASAL SINUSES: No fluid or mucosal thickening. SOFT TISSUES: No mass or hematoma. OTHER: No other significant finding. IMPRESSION: Stable unenhanced CT of the brain with multiple areas of decreased attenuation most cons istent with old infarcts. There has been no change management analyst the past 24 hours. TECHNICAL DOCUMENTATION: JOB ID: [id number] Quality ID # [id number]: Final reports with documentation of one or more dose reduction techniques (e.g., Au tomated exposure control, adjustment of the mA and/or kV according to patient size, use of iterative reconstruction technique) 2010 [employer]- All Rights Reserved
[2017-01-22] MEDS ORDERED: ATORVASTATIN CALCIUM 40 MG TABLET PO SCH (22:00)
[2017-01-23] MEDS: TRAMADOL HCL 50 MG TABLET PO PRN (06:05)
[2017-01-23] MEDS ORDERED: PROMETHAZINE HCL 25 MG TABLET PO PRN (07:45)
[2017-01-23] MEDS: DOCUSATE SODIUM 100 MG CAPSULE PO SCH (09:30)
[2017-01-23] MEDS: ENOXAPARIN SODIUM INJ 40 MG/0.4 ML DISP.SYRIN SUBCUT SCH (09:30)
[2017-01-23] MEDS ORDERED: ASPIRIN 81 MG TABLET, CHEWABLE PO SCH (10:00)
[2017-01-23] MEDS ORDERED: AMLODIPINE BESYLATE 10 MG TABLET PO SCH (10:00)
[2017-01-23] MEDS ORDERED: CLOPIDOGREL BISULFATE 75 MG TABLET PO SCH (10:00)
[2017-01-23 10:33] VITALS: BP 123/84
--- NOTE | 2017-01-23 12:17 | DISCHARGE SUMMARY E ---
Discharge Summary NAME: SHARITA POWELL : 1965 AGE: 51Y ADMITTED: 01/22/2017 DISCHARGED: 01/23/2017 CODE STATUS: DO NOT RESUSCITATE/DO NOT INTUBATE with portable DNR. PRIMARY CARE PROVIDER: Steven Gottlieb DISCHARGE DIAGNOSES: 1. Transient ischemic attack. 2. Cerebrovascular disease. 3. Carotid stenosis. 4. Left hemiparesis due to previous CVA. 5. Chronic pain. 6. Tobacco dependency. DISCHARGE MEDICATIONS: 1. Ultram 50 mg p.o. q.6 hours p.r.n., 12 tablets with 0 refills. 2. Lipitor 40 mg p.o. at hour of sleep, 30 tablets with 0 refills. 3. Nicotine patch transdermally daily. 4. Plavix 75 mg p.o. daily. 5. Aspirin 81 mg p.o. daily. 6. Amlodipine 10 mg p.o. daily. 7. Caverject 20 mcg as needed. DIET: Heart healthy. ACTIVITY: As tolerated. DIAGNOSTICS: Lab values are as follows: Hematology obtained on 01/22/2017: WBCs are 8.0, hemoglobin is 9.9, hematocrit is 30.3, platelet count is 239,000. Chemistry obtained on 01/21/2017: PT is 12.4. INR is 0.86. Chemistry obtained on 01/21/2017: Sodium is 140, potassium is 4.3, chloride is 107, carbon dioxide 23, BUN 10, creatinine is 0.85, glucose 137, calcium is 9.2, magnesium is 1.6, bilirubin is 0.4, AST 20, ALT 17, alk phos 67, CK-MB is 0.58. Troponin is 0.012. Total protein 6.7, albumin 4.0, TSH is 1.22. Urinalysis obtained on 01/21/2017: Color yellow, appearance slightly cloudy, pH 5.0, specific gravity 1.009, protein negative, glucose negative, ketones negative, occult blood negative, nitrate negative, bilirubin negative, urobilinogen negative, leukocyte esterase negative, WBC 2, RBC 5, casts 1, mucous rare, ascorbic acid negative. Toxicology obtained on 01/21/[address] Head [address] obtained on 01/21/2017 reveals multiple areas of decreased attenuation which have progressed in comparison to January 12. Chest x-ray obtained on 01/21/2017 reveals hyperexpansion. No acute findings. Chest CT obtained on 01/22/[address] of the brain and multiple areas of decreased attenuation most consistent with old infarct. EKG obtained on 01/21/2017 reveals sinus rhythm. EKG obtained on 01/22/2017 reveals sinus rhythm. PHYSICAL EXAMINATION: GENERAL: On examination, the patient is a well-developed, well-nourished, 51-year-old male who is awake, alert, and oriented to person, place, time, and situation. He is verbal, conversational, and does not appear to be in any acute distress. VITAL SIGNS: Temperature 97.6, pulse 58, respirations 16, blood pressure 123/84, oxygen saturation is 98% on room air. SKIN: Warm and dry. No rash. Not diaphoretic. HEENT: Pupils equal, round, reactive to light and accommodation. Conjunctivae are pink. No JVP. CARDIOVASCULAR: Heart is regular with no murmur or rub. CHEST: Clear, symmetrical, unlabored. ABDOMEN: Soft, nontender, nondistended. BACK: No CVA tenderness or sacral edema. EXTREMITIES: No clubbing, cyanosis, or edema. PSYCHIATRIC: Appropriate affect. Pleasant mood. HISTORY OF PRESENT ILLNESS: The patient is a 51-year-old male with a past medical history of tobacco dependency and cerebrovascular disease. The patient presented to the emergency department with a chief complaint of altered mental status. The patient is status post distant prior stroke without residual effects; however, he is status post prior TPA on Friday, 9 days prior to presentation. The patient was transferred out of our facility to [facility] after TPA was given. The patient was discharged last Friday with mild residual left hemiparesis. Prior to presenting the patient was standing in his garage smoking a cigarette, the patient being a pack a day smoker, when he felt sleepy, dropped his cigarette, and said that his left arm and left leg had worsened. The patient, also noted by his girlfriend who was present at the bedside, appeared to have a slight facial droop on the left. The patient was then brought into the emergency department for evaluation. CT scan results were noted and the emergency room provider did speak to the neurologist at [facility] who reviewed the patient's records from there and confirmed that he indeed had a stroke from his previous admission and the only recommendations were made to provide observation and supportive care, and repeat CT scan in 24 hours. The patient was referred to the hospitalist for admission and management. HOSPITAL COURSE: The patient was observed in continuous telemetry unit. 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 The patient's repeat CT scan only showed old areas of involvement and nothing evolving. The patient, who does have significant stenosis, is completely occluded according to the girlfriend and is recommended to have an endarterectomy on that side whereas he has had a prior on the other. The patient is encouraged to please comply with stain therapy as well as aspirin therapy. The patient does have chronic pain for which he has taken Kratom in the past and was transitioned to Ultram which has been beneficial. Have provided the patient prescription for this until he can follow up with his primary care provider. Time spent on this discharge including assessment, plan, physical examination, patient education, and family meeting is 25 minutes. DICTATING PHYSICIAN: NHAN ABDUL NP [id number] PHY#: [id number] ID: [id number] JOB#: [id number] ACCT: [id number] cc:ARIANNA FULLER M.D., MICHAEL NP >
--- NOTE | 2017-01-23 13:21 | EKG REPORT ---
SEVERITY:- ABNORMAL ECG - SINUS RHYTHM NONSPECIFIC INTRAVENTRICULAR CONDUCTION DELAY BORDERLINE INFERIOR Q WAVES : Confirmed by: Ashley Perkins 23-Jan-2017 13:21:10
== END 2017-01-23 11:14 | disposition home or self-care (01) | DRG 70 ==
LOC: ER 18:43 → UNDOADMIN 21:23 → EH 21:23 → INTOOBSV 23:07 → EH 23:07 → ICU 01-22 00:05 → EH 01-22 00:05 → OBSVTOIN 01-22 04:30 → 3W 01-22 06:01
PROVIDERS: ADMIT Family Medicine; ATTEND Family Medicine
DX: I67.9 Cerebrovascular disease, unspecified (principal); G93.49 Other encephalopathy; I69.354 Hemiplegia and hemiparesis following cerebral infarction affecting left non-dominant side; Z66 Do not resuscitate; R29.818 Other symptoms and signs involving the nervous system; G89.29 Other chronic pain; I10 Essential (primary) hypertension; D64.9 Anemia, unspecified; E78.5 Hyperlipidemia, unspecified; R29.810 Facial weakness; F17.210 Nicotine dependence, cigarettes, uncomplicated; Z79.01 Long term (current) use of anticoagulants
CPT/HCPCS: 36415; 70450; 71010; 80048; 80076; 80307; 81001; 82553; 83735; 84443; 84484; 85025; 85610; 85730; 93005; 93010; 99285; G0378; J1650; J3490; J7030

== ENCOUNTER 2017-03-18 03:43 | Emergency (ER) | payer SELFPAY ==
--- NOTE | 2017-03-18 04:03 | ER Document Report ---
ED Neuro Symptoms/Deficit <DANA TURK - Last Filed: 03/18/17 05:30> - General Mode of Arrival: Ambulatory Information source: Patient TRAVEL OUTSIDE OF THE [place] IN LAST 30 DAYS: No <WAYNE VELA - Last Filed: 03/18/17 06:50> - General Chief Complaint: Numbness Stated Complaint: NUMBNESS Time Seen by Provider: 03/18/17 04:03 Notes: 52 yo htn, hyperlipedemic, smoker, alcoholic who has been drinking 1 quart of whiskey daily for a week due to breaking up with girlfriend, went to sleep at 2300, woke up at 3 am with numbness to left arm and leg, got scared, jumped into car and drove here. Numbness went away on way here. Does have headache - bandlike. PCP: dr. saldaña in [place]. 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 Stroke in 2008 in [place], left carotid endartarectomy done at that time. 01-12-17 at [facility] at left sided weakness that got worse while in ER, TPA given and sent to [facility], and right 50% blocked so endartarectomy not done. At this time 5+ strength bilateral arms and legs, no facial weakness. 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 Lives with: Alone Family History: None Patient has suicidal ideation: No Patient has homicidal ideation: No - Past Medical History Cardiac Medical History: Reports: Hx Hypertension Neurological Medical History: Reports: Hx Cerebrovascular Accident - 2008, 2016 Renal/ Medical History: Denies: Hx Peritoneal Dialysis Musculoskeltal Medical History: Reports Hx Arthritis Past Surgical History: Reports: Hx Carotid Endarterectomy - Right, Hx Orthopedic Surgery - Knee surgery <WAYNE VELA - Last Filed: 03/18/17 06:50> Review of Systems - Review of Systems Constitutional: No symptoms reported EENT: No symptoms reported Cardiovascular: No symptoms reported Respiratory: No symptoms reported Gastrointestinal: No symptoms reported Genitourinary: No symptoms reported Male Genitourinary: No symptoms reported Musculoskeletal: No symptoms reported Skin: No symptoms reported Hematologic/Lymphatic: No symptoms reported Neurological/Psychological: See HPI <WAYNE VELA - Last Filed: 03/18/17 06:50> Physical Exam - Vital signs Interpretation: Normal - General General appearance: Appears well, Alert - HEENT Head: Normocephalic, Atraumatic Eyes: Normal Conjunctiva: Normal Extraocular movements intact: Yes Pupils: PERRL Mucous membranes: Normal Pharynx: Normal Neck: Supple. No: Lymphadenopathy - Respiratory Respiratory status: No respiratory distress Chest status: Nontender Breath sounds: Normal Chest palpation: Normal - Cardiovascular Rhythm: Regular Heart sounds: Normal auscultation Murmur: No - Abdominal Inspection: Normal Distension: No distension Bowel sounds: Normal Tenderness: Nontender Organomegaly: No organomegaly - Back Back: Normal, Nontender - Extremities General upper extremity: Normal inspection, Nontender, Normal color, Normal ROM , Normal temperature General lower extremity: Normal inspection, Nontender, Normal color, Normal ROM , Normal temperature, Normal weight bearing. No: Milton's sign - Neurological Neuro grossly intact: Yes Cognition: Normal Orientation: AAOx4 Jillian Coma Scale Eye Opening: Spontaneous Clyde Coma Scale Verbal: Oriented Clyde Coma Scale Motor: Obeys Commands Clyde Coma Scale Total: 15 Speech: Normal Motor strength normal: LUE, RUE, LLE, RLE Additional motor exam normals: Equal correctional officer captain, Other - 5+ strength to rickey legs and arms. No: Involuntary movements, Hemiplegia Sensory: Normal - Psychological Associated symptoms: Normal affect, Normal mood - Skin Skin Temperature: Warm Skin Moisture: Dry Skin Color: Normal Skin irregularity: negative: Rash <WAYNE VELA - Last Filed: 03/18/17 06:50> - Vital signs Vitals: Temp Pulse Resp BP Pulse Ox 97.5 F 76 18 142/92 H 100 03/18/17 03:53 03/18/17 03:53 03/18/17 03:53 03/18/17 03:53 03/18/17 03:53 Course - Laboratory Result Diagrams: 03/18/17 04:35 03/18/17 04:35 <DANA TURK - Last Filed: 03/18/17 05:30> - Laboratory Result Diagrams: 03/18/17 04:35 03/18/17 04:35 <WAYNE VELA - Last Filed: 03/18/17 06:50> - Re-evaluation Re-evalutation: 03/18/17 05:30 I did go and evaluate the patient. I initially spoke with the radiologist reviewed all the patient's infarcts to make sure that the infarct seen on CT scan today were not new in comparison to the previous old CT scan. The radiologist, Dr. Mallory, says that all the infarcts or old maturing infarcts. There are no new infarcts that he can see. He did mention that the patient does have an odd pattern where he does have some smaller wedge-shaped infarcts are periventricular. He says that these likely can sometimes represent demyelinating disease. Initially was concerned with this and want to make sure the patient had an MRI. I did go and speak with the patient. The patient said he actually had an MRI in December when he was [facility] to [facility]. At that time he said there is no evidence of multiple sclerosis on his MRI and he was told that he just had infarcts at that time. He did see a neurologist in [place] at that time. He has not followed back up with the neurologist. He says he just follows closely with his primary care doctor in [place]. I informed him that this time we have 2 options. I told him I suspect that he most likely had a TIA. He has had multiple TIAs in the past. Informed him that continuously drinking alcohol will not help his symptoms and continue use of alcohol this from a high risk for strokes. He is understanding of this. He said he would try to quit. He does agree to taking gabapentin to try to help prevent withdrawal symptoms and to try to quit. I will prescribe him some gabapentin. I did to stand him in walking. He does walk well without staggering. He does have good equal correctional officer captain strength. All his numbness and that he had earlier is now gone. He looks well. He has no focal neurologic deficits on exam. Cranial nerves II through XII are intact. Patient is on max therapy for preventing TIAs already. He is on Plavix and aspirin. I did offer him to stay in the hospital versus following up closely outpatient with his doctor for reevaluation and referral back to his neurologist. Patient says he does not want to stay in the hospital and prefers to follow-up out patiently. I informed him that I am okay with him falling out patiently as long as he is willing to return to the ER immediately if he has any recurrence of any strokelike symptoms. Patient is agreeable to this and will be discharged home. I encouraged him to talk to his doctor neurologist about further workup for MS even though his primary MRI was negative for this as his infarct pattern is atypical. Patient agrees with this. Dictation of this chart was performed using voice recognition software; therefore, there may be some unintended grammatical errors. (DANA TURK) 03/18/17 05:[address] turk for the CT who is calling the radiologist that read the CT to compare to the 01-21- and 01-22 ct's. the radiologist read them as "Maturing" strokes. EKG NSR. Radiologist said no new infarcts, maturing since 01-22-17. Perivetricular-white matter disease but [facility] MS. 03/18/17 05:[address] caldera for admission, MRI, neurology consult per dr. turk suggestion. Dr caldera is not answering the phone. 03/18/17 05:16 dr hansen went into the room and spoke with the pt. Pt on asa and plavix. Pt wants to go home versus admission that was offered. dr turk aware of the troponin level. 03/18/17 06:49 pt ambulated in hallway, stable gait, pt feels "100%" better, per dr. turk pt is OK to go home. (WAYNE VELA) - Vital Signs Vital signs: Temp Pulse Resp BP Pulse Ox 97.5 F 75 15 131/75 H 99 03/18/17 03:53 03/18/17 06:00 03/18/17 06:01 03/18/17 06:00 03/18/17 06:01 - Laboratory Laboratory results interpreted by me: 03/18/17 03/18/17 04:35 04:35 Hgb 11.8 L Hct 35.2 L MCV 70 L MCH 23.4 L RDW 19.6 H Lymphocytes % 46.9 H Sodium 147.8 H Chloride 111 H Discharge <DANA TURK - Last Filed: 03/18/17 05:30> <WAYNE VELA - Last Filed: 03/18/17 06:50> - Discharge Clinical Impression: TIA (transient ischemic attack) Qualifiers: Transient cerebral ischemia type: unspecified Qualified Code(s): G45.9 - Transient cerebral ischemic attack, unspecified Condition: Good Disposition: HOME, SELF-CARE Additional Instructions: Please follow up closely with your doctor for reevaluation this week. Please inform him that you had the episode tonight suggestive of a TIA. Also please inform him that the pattern on your CT scan is sometimes suggestive of a demyelinating disease such as MS even though your MRI in December did not suggest this. Please have your doctor refer you to follow back up with a neurologist for reevaluation and further workup. Please try to cut back on your alcohol intake. Use the gabapentin to help reduce the symptoms of withdrawal. Please take it as prescribed. Please try not to drink large amounts of alcohol when taking the gabapentin. Please return to the ER immediately if you are having intractable withdrawal symptoms despite the gabapentin, if you have any recurrence of any strokelike symptoms such as weakness or numbness or difficulty talking, or if you have any further concerns. Prescriptions: Gabapentin 400 mg PO ASDIR PRN #22 capsule PRN Reason:
--- NOTE | 2017-03-18 04:42 | RADIOLOGY REPORT (SQ) ---
EXAM: NONCONTRAST BRAIN CT EXAMINATION. CLINICAL INDICATION: Left-sided numbness. COMPARISON: Brain CT of January 22, 2017. TECHNIQUE: Using low dose helical CT technique, thin section axial images were performed through the brain without the administration of intravenous or subarachnoid contrast material. FINDINGS: Maturing hypodensities in the upper right frontal lobe within anterior right middle cerebral artery territory suggests maturing infarction. Unchanged wedge-shaped upper left white matter hypodensity perpendicular to the left lateral ventricle. Small right periventricular hypodensity. No diffuse brain swelling or brain herniation. No hydrocephalus. No subdural or epidural hematomas. No large subacute brain infarction. No parenchymal brain hemorrhage or evidence of intracranial mass lesion. Caudate heads, lentiform nuclei, thalami and internal capsules are normal. Bones of the skull and skull base are normal. The middle ears and mastoid air cells are clear. The paranasal sinuses are clear. Moderate atherosclerotic calcification of the cavernous internal carotid arteries. IMPRESSION: 1. Suspect maturing right frontal lobe infarction as described above. No associated intracranial hemorrhage. 2. Periventricular white matter lesions as described above raise suspicion for demyelinating disease, specifically multiple sclerosis.
[2017-03-18 04:44] LABS: ABSOLUTE BASOPHILS # (AUTO) 0.1 10^3/uL (0.0-0.2); ABSOLUTE EOSINOPHILS # (AUTO) 0.1 10^3/uL (0.0-0.6); ABSOLUTE LYMPHOCYTES (AUTO) 3.2 10^3/uL (0.5-4.7); ABSOLUTE MONOCYTES (AUTO) 0.5 10^3/uL (0.1-1.4); EOSINOPHILS % (AUTO) 1.8 % (0-6); HEMATOCRIT 35.2 % (37.9-51.0); HEMOGLOBIN 11.8 g/dL (13.5-17.0); HGB HCT DIFFERENCE 0.2; LYMPHOCYTES % (AUTO) 46.9 % (13-45); MEAN CORPUSCULAR HEMOGLOBIN 23.4 pg (27.0-33.4); MEAN CORPUSCULAR HGB CONC 33.5 g/dL (32.0-36.0); MEAN CORPUSCULAR VOLUME 70 fl (80-97); MONOCYTES % (AUTO) 6.7 % (3-13); RED BLOOD COUNT 5.04 10^6/uL (4.35-5.55); RED CELL DISTRIBUTION WIDTH 19.6 % (11.5-14.0); SEGMENTED NEUTROPHILS % (AUTO) 43.6 % (42-78); WHITE BLOOD COUNT 6.9 10^3/uL (4.0-10.5)
--- NOTE | 2017-03-18 04:44 | RADIOLOGY REPORT (SQ) ---
EXAM DESCRIPTION: CHEST SINGLE VIEW CLINICAL HISTORY: 52 years, Male, numbness left side COMPARISON: Chest radiographs of January 21, 2017. NUMBER OF VIEWS: 1 TECHNIQUE: Interval radiographic technique. LIMITATIONS: None. FINDINGS: Unchanged findings of probable bilateral emphysematous damage in both hyperexpanded lungs. Cardiac size is normal. No superimposed pneumonia, pulmonary edema, pneumothorax or pneumomediastinum. Bones appear normal on this single view. IMPRESSION: Unchanged findings of COPD and emphysematous damage. No superimposed acute cardiopulmonary disease. 2011 [employer]- All Rights Reserved
[2017-03-18 04:52] LABS: PARTIAL THROMBOPLASTIN TIME 29.8 SEC (23.5-35.8); PROTHROMBIN TIME 12.8 SEC (11.4-15.4)
[2017-03-18 04:57] LABS: ALANINE AMINOTRANSFERASE 35 U/L (21-72); ALBUMIN 4.3 g/dL (3.5-5.0); ALKALINE PHOSPHATASE 81 U/L (38-126); ANION GAP 13 (5-19); ASPARTATE AMINO TRANSFERASE 36 U/L (17-59); BILIRUBIN,DIRECT 0.3 mg/dL (0.0-0.4); BILIRUBIN,TOTAL 0.4 mg/dL (0.2-1.3); BLOOD UREA NITROGEN 9 mg/dL (7-20); CARBON DIOXIDE 24 mmol/L (22-30); CHLORIDE 111 mmol/L (98-107); CREATINE KINASE 93 U/L (55-170); CREATININE RESULT 0.65 mg/dL (0.52-1.25); GLUCOSE 83 mg/dL (75-110); POTASSIUM 3.9 mmol/L (3.6-5.0); SODIUM 147.8 mmol/L (137-145); TOTAL PROTEIN 6.8 g/dL (6.3-8.2)
[2017-03-18 05:08] LABS: CREATINE KINASE MB 0.89 ng/mL (<4.55); TROPONIN I 0.028 ng/mL
[2017-03-18 06:06] LABS: APPEARANCE,URINE CLEAR; BILIRUBIN,URINE NEGATIVE (NEGATIVE); GLUCOSE, URINE NEGATIVE (NEGATIVE); KETONES,URINE NEGATIVE (NEGATIVE); LEUKOCYTE ESTERASE,URINE NEGATIVE (NEGATIVE); NITRITE,URINE NEGATIVE (NEGATIVE); PROTEIN,URINE NEGATIVE (NEGATIVE); URINE SPECIFIC GRAVITY 1.008; UROBILINOGEN,URINE NEGATIVE mg/dL (<2.0)
[2017-03-18 06:21] LABS: URINE BARBITURATES SCREEN NEGATIVE; URINE METHADONE SCREEN NEGATIVE; URINE OPIATES LOW NEGATIVE; URINE PHENCYCLIDINE SCREEN NEGATIVE
[2017-03-18 06:54] VITALS: BP 132/78
--- NOTE | 2017-03-18 18:19 | EKG REPORT ---
SEVERITY:- NORMAL ECG - SINUS RHYTHM : Confirmed by: Darling Kendall MD 18-Mar-2017 18:18:15
== END 2017-03-18 06:54 | disposition home or self-care (01) ==
LOC: ER 03:43
DX: G45.9 Transient cerebral ischemic attack, unspecified (principal); R51 Headache; R20.0 Anesthesia of skin; I10 Essential (primary) hypertension; E78.5 Hyperlipidemia, unspecified; F10.20 Alcohol dependence, uncomplicated; F17.200 Nicotine dependence, unspecified, uncomplicated; Z86.73 Personal history of transient ischemic attack (TIA), and cerebral infarction without residual deficits; Z79.02 Long term (current) use of antithrombotics/antiplatelets; Z79.82 Long term (current) use of aspirin
CPT/HCPCS: 36415; 70450; 71010; 80053; 80307; 81001; 82550; 82553; 84484; 85025; 85610; 85730; 93005; 93010; 99285